=== PATIENT | female | born 1950 | race African-American/Black ===

== ENCOUNTER 2019-09-19 08:47 | Day surgery (SDC) | payer MEDICARE ==
[2019-09-17 16:55] LABS: Absolute Lymphocytes (CBC) 1.7 K/uL (0.7-4.9); Basophils % 0.8 % (0-1.3); Hematocrit 41.7 % (36.0-45.0); Lymphocytes % 29.6 % (15.3-44.8); RBC Red Blood Cell Count 4.88 M/uL (3.86-4.86)
[2019-09-17 16:56] LABS: Protein, Total 7.3 g/dL (6.4-8.2)
--- NOTE | 2019-09-18 06:47 | EKG ---
Test Date: 2019-09-17 Test Time: 15:11:32 Combat Systems Operator: HALLIE MEASUREMENT RESULTS: Intervals: Rate: 64 NJ: 172 QRSD: 106 QT: 424 QTc: 437 Thornton: P: 60 NJ: 172 QRS: 24 T: 5 INTERPRETIVE STATEMENTS: Normal sinus rhythm Nonspecific T wave abnormality Abnormal ECG No previous ECG available for comparison Electronically Signed On 09-18-19 06:45:09 SITE FOREMAN by Nicholas Cannon
--- OUTSIDE RECORDS SUMMARY | 2019-09-19 08:50 | XMS REPORT | Summary of Care ---
:1950 Author Organization [facility] Address [address] [place] [address] Care Team Providers Name Role Phone Barrera Brito MD Primary Care Provider Reason for Visit Reason Comments Notification Encounter Details Date Type Department Care Team Description 04/29/2019 Telephone [facility] Family Medicine Barrera Brito MD Notification - [place] [address] [place] [address] [place] [phone] Allergies Active Allergy Reactions Severity Noted Date Comments Sulfa (Sulfonamide Antibiotics) Hives, Itching, Rash 04/02/2017 documented as of this encounter (statuses as of 05/02/2019) Medications Medication Sig Dispensed Refills Start Date End Date Status aspirin (ANEESH Take 81 mg by 0 Active CHEWABLE ASPIRIN) 81 mouth daily. mg chewable tablet fluticasone 50 Use 2 Sprays in 16 g 1 02/13/2018 Active mcg/actuation nasal each nostril sprayIndications: daily. Acute non-seasonal allergic rhinitis, unspecified trigger furosemide 20 mg Take 1 tablet by 0 06/03/2018 Active tablet mouth daily. TIMOLOL 0.5 % INSTILL ONE DROP 20 mL 3 08/26/2018 Active ophthalmic solution IN BOTH EYES TWO TIMES DAILY allopurinol 300 mg Take 1 tablet by 90 tablet 3 09/06/2018 Active tablet mouth daily. atorvastatin 40 mg Take 1 tablet by 90 tablet 3 09/06/2018 Active tablet mouth at bedtime. bisoprolol 10 mg Take 1 tablet by 90 tablet 2 11/26/2018 Active tabletIndications: mouth every Medication refill morning. amLODIPine 10 mg Take 1 tablet by 90 tablet 2 11/26/2018 Active tabletIndications: mouth every Medication refill morning. metformin ER 500 mg Take 1 tablet by 180 tablet 2 01/20/2019 Active 24 hr mouth 2 (two) tabletIndications: times daily. Diabetes mellitus type 2 in obese GABAPENTIN 600 mg TAKE 1 TABLET BY 180 tablet 1 02/28/2019 Active tabletIndications: MOUTH TWO TIMES Medication refill DAILY LATANOPROST 0.005 % INSTILL ONE DROP 2.5 mL 6 03/07/2019 Active ophthalmic drops IN BOTH EYES AT BEDTIME cinacalcet 60 mg Take 1 tablet by 30 tablet 3 03/26/2019 Active tablet mouth daily. telmisartan 80 mg Take 1 tablet by 90 tablet 3 03/28/2019 06/26/2019 Active tabletIndications: mouth daily for Essential 90 days. hypertension REPLACES LOSARTAN. documented as of this encounter (statuses as of 05/02/2019) Active Problems Problem Noted Date CKD (chronic kidney disease), stage III 01/13/2019 Renal cyst, left 09/30/2018 Osteoarthritis of right hip 09/09/2018 Screening for colorectal cancer 04/12/2017 Overview: Added automatically from request for surgery [id number] Elevated total protein 04/09/2017 Hypercalcemia 04/09/2017 Abnormal LFTs 04/09/2017 Osteopenia 04/09/2017 Fatty liver 04/02/2017 Diabetes mellitus type 2 in obese 04/02/2017 Morbid obesity 04/02/2017 Vitamin D deficiency Sickle cell trait Right sided sciatica Peripheral edema Hypertension Hyperlipidemia Gout Chronic lower back pain documented as of this encounter (statuses as of 05/02/2019) Social History Tobacco Use Types Packs/Day Years Used Date Never Smoker Smokeless Tobacco: Never Used Alcohol Use Drinks/Week oz/Week Comments No Sex Assigned at Date Recorded Not on file Job Start Date Occupation Industry Not on file Not on file Not on file Travel History Travel Start Travel End No recent travel history available. documented as of this encounter Last Filed Vital Signs Not on filedocumented in this encounter Plan of Treatment Date Type Specialty Care Team Description 05/07/2019 Office Visit Urology Aye Orozco, SUPERVISOR ELECTRONIC TESTING [address] [facility] [address] [place] [address] [phone] 07/21/2019 Warp Changer Visit Phlebotomy Vtc-Lab 07/23/2019 Office Visit Ophthalmology Moon Duncan MD [address] [place] [address]. [place] [address] 07/28/2019 Office Visit Nephrology Shankar Varela [place], [place] [phone] 09/26/2019 Office Visit Endocrinology Diabetes & Juan Antonio Morris Metabolism [address] [place] [address] 03/15/2020 Laboratory Only Life Trainer, Adc Cardio Fac 1, Adc Cardio Fac Room 04/01/2020 Office Visit Cardiology Vanessa Moon MD [address] [place] [address] Health Maintenance Due Date Last Done Comments DTaP,Tdap,and Td Vaccines (1 - 1971 Tdap) Zoster Recombinant Vaccine 2002 (SHINGRIX) (1 of 2) Medicare Wellness Visit 2017 PNEUMOCOCCAL VACCINES 65+ (1 of 2 2017 - PCV13) HgA1C 03/09/2019 09/09/2018, 03/15/2018, 09/14/2017, Additional history exists MAMMOGRAM 04/03/2019 04/03/2018 INFLUENZA VACCINE (#1) 2019 LDL-C 09/09/2019 09/09/2018, 04/02/2017 URINE MICROALBUMIN 09/09/2019 09/09/2018 FOOT EXAM 09/20/2019 09/20/2018, 09/20/2018, 04/02/2017, Additional history exists CREATININE (SERUM) 01/17/2020 01/16/2019, 09/09/2018, 05/30/2018, Additional history exists EYE EXAM 03/20/2020 03/20/2019, 06/03/2018, 10/24/2017 COLONOSCOPY 09/10/2021 09/10/2011 HEPATITIS C (HCV) SCREEN Completed 04/02/2017 Osteoporosis Screening Completed 04/05/2017 documented as of this encounter Results Not on filedocumented in this encounter Insurance Payer Benefit Plan / Subscriber ID Effective Phone Address Type Group Dates [place] AARP MEDICARE [id number] 2017-Prese Medicare Adv HEALTHCARE - COMPLETE nt HMO MANAGED MEDICARE documented as of this encounter
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
--- OUTSIDE RECORDS SUMMARY | 2019-09-19 08:50 | XMS REPORT ---
:1950 Author Organization [facility] Address [address] [place] [address] Care Team Providers Name Role Phone Unavailable Unavailable Unavailable Payers Payer Name Policy Type Policy Number Effective Date Expiration Date Problems This patient has no known problems. Allergies, Adverse Reactions, Alerts Allergy Name Allergy Status Severity Reaction(s) Onset Inactive Treating Comments Type Date Date Clinician Sulfonylureas DA Active U 03-03 00:00: 00 Carbonic DA Active U Anhydrase -24 Inhibitors 00:00: 00 Thiazides DA Active U 03-03 00:00: 00 Sulfa DA Active U (Sulfonamide - Antibiotics) 00:00: 00 propoxyphene DA Active U 03-03 00:00: 00 Medications This patient has no known medications.
--- OUTSIDE RECORDS SUMMARY | 2019-09-19 08:50 | XMS REPORT | Summary of Care ---
:1950 Author Organization [facility] Address [address] [place] [address] Care Team Providers Name Role Phone Barrera Brito MD Primary Care Provider Reason for Visit Reason Comments LAB WORK Encounter Details Date Type Department Care Team Description 05/07/2019 Critical Care Physician Assistant Visit [facility] Aye Orozco, GROUP INSURANCE SPECIAL AGENT [address] [facility] [address] [place] [address] [phone] Renal calculus, left PHLEBOTOMY/LAB Vls-Lab [address] [facility] [address] [place] [phone] Allergies Active Allergy Reactions Severity Noted Date [...] Overview: Added automatically from request for surgery [id number] Elevated total protein 04/09/2017 Hypercalcemia 04/09/2017 Abnormal [...] Specialty Care Team Description 06/18/2019 Office Visit UrologAye Borjas, GROUP INSURANCE SPECIAL AGENT [address] [facility] [address] [place] [address] [phone] 07/21/2019 Critical Care Physician Assistant Visit Phlebotomy Vtc-Lab 07/23/2019 Office Visit Ophthalmology Moon Duncan MD [address] [place] [address]. [place] [address] 07/28/2019 Office Visit Nephrology Shankar Varela [address] [place] [address] 09/26/2019 Office Visit Endocrinology Diabetes & Juan Antonio Morris [address] [place], [place] [address] 03/15/2020 Laboratory Only Air Traffic Control Specialist, Adc Cardio Fac 1, Adc Cardio Fac Room 04/01/2020 Office Visit Cardiology Vanessa Moon MD [address] [facility] [address] [place] [address] Health Maintenance Due Date Last [...] in this encounter Visit Diagnoses Diagnosis Renal calculus, left Calculus of kidney documented in this encounter Insurance Payer Benefit Plan / Subscriber ID Effective Phone Address Type Group Dates UNITED AARP MEDICARE [id number] 2017-Prese Medicare Adv HEALTHCARE - COMPLETE nt HMO MANAGED MEDICARE ([place]) [place] [address] documented as of this encounter
--- OUTSIDE RECORDS SUMMARY | 2019-09-19 08:50 | XMS REPORT | Summary of Care ---
:1950 Author Organization [facility] Address [address] [place] [address] Care Team Providers Name Role Phone Barrera Brito MD Primary Care Provider Reason for Referral (Routine) Status Reason Specialty Diagnoses / Referred By Referred To Procedures Contact Contact New Request Endocrinology Diagnoses Hyperparathyroidism Hypercalcemia Ernesto, Diabetes & Procedures CONSULT/REFERRAL ENDOCRINOLOGY Aye N, STEAM PLANT RECORDS CLERK Metabolism [address] [facility] [address] [place] [address] Reason for Visit Reason Comments Referral/consult One single kidney; Cyst on kidney (Routine) Status Reason Specialty Diagnoses / Referred By Referred To Procedures Contact Contact Authorized PREMIUM AUDITOR-FAMILY / Diagnoses Z90.5 (ICD-10-CM) - Solitary kidney, acquired Q61.02 (ICD-10-CM) - Multiple renal cysts/ aware pa &ml Urology Service Ernesto Urology Procedures OUTPATIENT NEW 45 MINUTES OUTPATIENT ESTB 25 MINUTES FOLLOW-UP VISIT [address] [place] [address] Aye N, STEAM PLANT RECORDS CLERK [place] [address] [facility] [address] [address] Phone: [place], [place] [phone] Encounter Details Date Type Department Care Team Description 05/07/2019 Office Visit [facility] Miriam Orozcoe Renal cyst, left (Primary Dx); Center-Urologic N, STEAM PLANT RECORDS CLERK Renal calculus, left; Oncology 2[address] [facility] Solitary left kidney; [address] [facility] Hyperparathyroidism; [address] Hypercalcemia [place], [place] [address] [phone] Allergies Active Allergy Reactions Severity Noted Date [...] Overview: Added automatically from request for surgery [id number] Elevated total protein 04/09/2017 Hypercalcemia 04/09/2017 Abnormal [...] in this encounter Progress Notes Aye Orozco, STEAM PLANT RECORDS CLERK - 05/07/2019 9:30 AM CDT Visit Type: [...] kidney" per patient. No cancer. Seen by Tube Pusher for endometrium thickening - monitoring. No vaginal [...] N/A 05/17/2017 Surgeon: Serena Chavez MD; Location: [facility] OR [facility] ESOPHAGOGASTRODUODENOSCOPY 2013 Dr. Vallecillo FOOT TENDON REPAIR [...] file Gets together: Not on file Attends pentecostal service: Not on file Active member of [...] Seen HPF Moderate (A) Results for KHRIS RFASER ( ) as of 05/07/2019 09:27 Ref. [...] severe narrowing of the disc space with [id number] contact between lower posterior edge of L5 [...] is unusual for the patient's age. Therefore, PLASTIC SHEETING CUTTER consultation along with transvaginal pelvic ultrasound study [...] Office Visit Urology Aye Orozco FNP [address] [facility] [address] [place], [place] [address] 07/21/2019 Lapping Machine Tender Visit Phlebotomy Vtc-Lab 07/23/2019 Office Visit Ophthalmology Moon Duncan MD [address] [place] [address]. [place] [address] 07/28/2019 Office Visit Nephrology Shankar V[address]la [address] [place] [address] [phone] 09/26/2019 Office Visit Endocrinology Diabetes & Juan Antonio Morris Metabolism [address] [place] [address] [phone] 03/15/2020 Laboratory Only Dial Mounter, Adc Cardio Fac 1, Adc Cardio Fac Room 04/01/2020 Office Visit Cardiology Vanessa Moon MD [address] [address] [place] [phone] Name Type Priority Associated Diagnoses Order Schedule [...] Address Type Group Dates [place] AARP MEDICARE [id number] 2017-Prese Medicare Adv HEALTHCARE - COMPLETE [facility] MEDICARE ([place]) [place] [address] documented as of this encounter
--- OUTSIDE RECORDS SUMMARY | 2019-09-19 08:51 | XMS REPORT | Summary of Care ---
:1950 Author Organization [facility] Address [address] [place] [address] Care Team Providers Name Role Phone Barrera Brito MD Primary Care Provider Reason for Visit Reason Comments Cough X 4 days HOARSENESS Encounter Details Date Type Department Care Team Description 05/21/2019 Office Visit [facility] Family TcAlexandria rojas, Acute non- recurrent maxillary sinusitis (Primary Dx); Medicine - [place] EXECUTIVE SEARCH CONSULTANT Cough [address] [place], [place] [address] [address] [address] [place], [place] [address] Allergies Active Allergy Reactions Severity Noted Date Comments Sulfa (Sulfonamide Antibiotics) Hives, Itching, Rash 04/02/2017 documented as of this encounter (statuses as of 05/21/2019) Medications Medication Sig Dispensed Refills Start Date End Date Status aspirin (ANEESH Take 81 mg by 0 Active CHEWABLE ASPIRIN) mouth daily. 81 mg chewable tablet furosemide 20 mg Take 1 tablet 0 06/03/2018 Active tablet by mouth daily. TIMOLOL 0.5 % INSTILL ONE 20 mL 3 08/26/2018 Active ophthalmic DROP IN BOTH solution EYES TWO TIMES DAILY allopurinol 300 mg Take 1 tablet 90 tablet 3 09/06/2018 Active tablet by mouth daily. atorvastatin 40 mg Take 1 tablet 90 tablet 3 09/06/2018 Active tablet by mouth at bedtime. bisoprolol 10 mg Take 1 tablet 90 tablet 2 11/26/2018 Active tabletIndications: by mouth every Medication refill morning. amLODIPine 10 mg Take 1 tablet 90 tablet 2 11/26/2018 Active tabletIndications: by mouth every Medication refill morning. metformin ER 500 Take 1 tablet 180 tablet 2 01/20/2019 Active mg 24 hr by mouth 2 tabletIndications: (two) times Diabetes mellitus daily. type 2 in obese GABAPENTIN 600 mg TAKE 1 TABLET 180 tablet 1 02/28/2019 Active tabletIndications: BY MOUTH TWO Medication refill TIMES DAILY LATANOPROST 0.005 INSTILL ONE 2.5 mL 6 03/07/2019 Active % ophthalmic drops DROP IN BOTH EYES AT BEDTIME cinacalcet 60 mg Take 1 tablet 30 tablet 3 03/26/2019 Active tablet by mouth daily. telmisartan 80 mg Take 1 tablet 90 tablet 3 03/28/2019 06/26/2019 Active tabletIndications: by mouth daily Essential for 90 days. hypertension REPLACES LOSARTAN. benzonatate 200 mg Take 1 capsule 30 capsule 0 05/21/2019 Active capsuleIndications by mouth 3 : Cough (three) times daily as needed for Cough. amoxicillin 875 mg Take 1 tablet 20 tablet 0 05/21/2019 05/31/2019 Active tabletIndications: by mouth 2 Acute (two) times non-recurrent daily for 10 maxillary days. sinusitis fluticasone Use 2 Sprays 16 g 1 05/21/2019 Active propionate 50 in each mcg/actuation nostril daily. nasal sprayIndications: Acute non-recurrent maxillary sinusitis fluticasone 50 Use 2 Sprays 16 g 1 02/13/2018 05/21/2019 Discontinued mcg/actuation in each nasal nostril daily. sprayIndications: Acute non-seasonal allergic rhinitis, unspecified trigger documented as of this encounter (statuses as of 05/21/2019) Active Problems Problem Noted Date CKD (chronic kidney disease), stage III 01/13/2019 Renal cyst, left 09/30/2018 Osteoarthritis of right hip 09/09/2018 Screening for colorectal cancer 04/12/2017 Overview: Added automatically from request for surgery [id number] Elevated total protein 04/09/2017 Hypercalcemia 04/09/2017 Abnormal LFTs 04/09/2017 Osteopenia 04/09/2017 Fatty liver 04/02/2017 Diabetes mellitus type 2 in obese 04/02/2017 Morbid obesity 04/02/2017 Vitamin D deficiency Sickle cell trait Right sided sciatica Peripheral edema Hypertension Hyperlipidemia Gout Chronic lower back pain documented as of this encounter (statuses as of 05/21/2019) Social History Tobacco Use Types Packs/Day Years [...] Sign Reading Time Taken Comments Blood Pressure 136/85 05/21/2019 3:47 PM CDT Pulse 91 05/21/2019 3:47 PM CDT Temperature 37.2 C (98.9 F) 05/21/2019 3:46 PM CDT Respiratory Rate - - Oxygen Saturation - - Inhaled Oxygen Concentration - - Weight 115.7 kg (255 lb) 05/21/2019 3:46 PM CDT Height 162.6 cm (5' 4") 05/21/2019 3:46 PM CDT Body Mass Index 43.77 05/21/2019 3:46 PM CDT documented in this encounter Patient Instructions Patient InstructionsAlexandria Montez FNP - 05/21/2019 3:40 PM CDTGeneral home recommendations include: Start taking plain antihistamine such as Claritin or Zyrtec or Smitha daily. Rest Increase fluids -Hydration with clear liquids. Vitamin C Warm salt water gargles for sore throat. Breath humidified air (steam) Sipping warm drinks may help. Warm Compresses (if sinus pressure or pain). Hand Hygiene (with alcohol gels or hand washing) Advised to take Tylenol or Ibuprofen as per label recommendation as needed for pain or fever Honey 10mL (2 teaspoons) has been shown to relieve cough at bedtime. Dark Chocolate helps with cough (xanthenes) Avoidance of cigarette smoke, alcoholic drinks, diving into deep water and air travel is useful. Irrigate your nose with normal saline moisture spray 2 or 3 times a day. You may use a spray, squeeze bottle, or nasal pot. - Advised to follow up with PCP, Urgent Care, or go to the nearest Emergency Department sooner for any new, worsening, persistent, or concerning symptoms. documented in this encounter Progress Notes Alexandria Montez, EXECUTIVE SEARCH CONSULTANT - 05/21/2019 3:40 PM CDT Cc: Chief Complaint Patient presents with Cough X 4 days HOARSENESS Nils Abbasi is a 69 year old female that presents to the clinic for sinus drainage, cough, and hoarseness for the past 4 days. She has tried taking Benadryl without relief. Her daughter and granddaughter have been sick with similar symptoms. Cough Cough characteristics: Hacking and dry Severity: Moderate Duration: 4 days Timing: Constant Progression: Unchanged Chronicity: New Context: sick contacts (daughter and grandchild) Worsened by: Nothing Ineffective treatments: Benadryl. Associated symptoms: headaches Associated symptoms: no chills, no ear pain, no fever, no rash, no shortness of breath and no sore throat Allergies Nils is allergic to sulfa (sulfonamide antibiotics). Medications Outpatient Medications Prior to Visit Medication Sig Dispense Refill telmisartan 80 mg tablet Take 1 tablet by mouth daily for 90 days. REPLACES LOSARTAN. 90 tablet 3 cinacalcet 60 mg tablet Take 1 tablet by mouth daily. 30 tablet 3 LATANOPROST 0.005 % ophthalmic drops INSTILL ONE DROP IN BOTH EYES AT BEDTIME 2.5 mL 6 GABAPENTIN 600 mg tablet TAKE 1 TABLET BY MOUTH TWO TIMES DAILY 180 tablet 1 metformin ER 500 mg 24 hr tablet Take 1 tablet by mouth 2 (two) times daily. 180 tablet 2 amLODIPine 10 mg tablet Take 1 tablet by mouth every morning. 90 tablet 2 bisoprolol 10 mg tablet Take 1 tablet by mouth every morning. 90 tablet 2 allopurinol 300 mg tablet Take 1 tablet by mouth daily. 90 tablet 3 atorvastatin 40 mg tablet Take 1 tablet by mouth at bedtime. 90 tablet 3 TIMOLOL 0.5 % ophthalmic solution INSTILL ONE DROP IN BOTH EYES TWO TIMES DAILY 20 mL 3 furosemide 20 mg tablet Take 1 tablet by mouth daily. fluticasone 50 mcg/actuation nasal spray Use 2 Sprays in each nostril daily. 16 g 1 aspirin (ANEESH CHEWABLE ASPIRIN) 81 mg chewable tablet Take 81 mg by mouth daily. No facility-administered medications prior to visit. Histories Past Medical History: Diagnosis Date Abnormal LFTs [...] N/A 05/17/2017 Surgeon: Serena Chavez MD; Location: [facility] ESOPHAGOGASTRODUODENOSCOPY 2013 Dr. Vallecillo FOOT TENDON REPAIR Right 1999 associated with fracture LASIK (LASER IN SITU KERATOMILEUSIS) RK LIPOMA EXCISION 1992 back NEPHRECTOMY Right 1987 benign RADIAL KERATOTOMY TUBAL LIGATION 1979 Social History Socioeconomic History Marital status: Spouse [...] file Gets together: Not on file Attends druze service: Not on file Active member of [...] file Social History Narrative Not on file Family History Problem Relation Age of Onset Heart Mother Heart Father No Significant Medical Problems Sister Kidney disease Brother ESRD Diabetes Maternal Grandmother Parkinsons disease Brother Review of Systems Constitutional: Negative for chills, fatigue and fever. HENT: Positive for postnasal drip, sinus pressure and voice change (hoarseness) . Negative for ear discharge, ear pain and sore throat. Respiratory: Positive for cough. Negative for shortness of breath. Gastrointestinal: Negative for diarrhea and vomiting. Musculoskeletal: Negative for arthralgias. Skin: Negative for rash. Neurological: Positive for headaches. Psychiatric/Behavioral: Negative for agitation and confusion. Vital Signs BP 136/85 | Pulse 91 | Temp 37.2 C (98.9 F) (Oral) | Ht 5' 4" (1.626 m) | Wt 255 lb (115.7 kg) | BMI 43.77 kg/m Physical Exam Constitutional: She is oriented to person, place, and time. She appears well- developed and well-nourished. No distress. HENT: Head: Normocephalic and atraumatic. Right Ear: Tympanic membrane and ear canal normal. Left Ear: Tympanic membrane and ear canal normal. Nose: Mucosal edema present. Right sinus exhibits maxillary sinus tenderness. Right sinus exhibits no frontal sinus tenderness. Left sinus exhibits maxillary sinus tenderness. Left sinus exhibits no frontal sinus tenderness. Mouth/Throat: Uvula is midline, oropharynx is clear and moist and mucous membranes are normal. Eyes: Conjunctivae are normal. Cardiovascular: Normal rate, regular rhythm, normal heart sounds and intact distal pulses. Pulmonary/Chest: Effort normal and breath sounds normal. Lymphadenopathy: Head (right side): No tonsillar adenopathy present. Head (left side): No tonsillar adenopathy present. She has no cervical adenopathy. Neurological: She is alert and oriented to person, place, and time. Gait normal. Skin: Skin is warm and dry. No rash noted. Psychiatric: She has a normal mood and affect. Her behavior is normal. Thought content normal. Nursing note and vitals reviewed. Assessment/Plan 1. Acute non-recurrent maxillary sinusitis - amoxicillin 875 mg tablet; Take 1 tablet by mouth 2 (two) times daily for 10 days. Dispense: 20 tablet; Refill: 0 - fluticasone propionate 50 mcg/actuation nasal spray; Use 2 Sprays in each nostril daily. Dispense: 16 g; Refill: 1 - educated patient about at home care: Start taking plain antihistamine such as Claritin or Zyrtec or Smitha daily. Rest Increase fluids -Hydration with clear liquids. Vitamin C Warm salt water gargles for sore throat. Breath humidified air (steam) Sipping warm drinks may help. Warm Compresses (if sinus pressure or pain). Hand Hygiene (with alcohol gels or hand washing) Advised to take Tylenol or Ibuprofen as per label recommendation as needed for pain or fever Honey 10mL (2 teaspoons) has been shown to relieve cough at bedtime. Dark Chocolate helps with cough (xanthenes) Avoidance of cigarette smoke, alcoholic drinks, diving into deep water and air travel is useful. Irrigate your nose with normal saline moisture spray 2 or 3 times a day. You may use a spray, squeeze bottle, or nasal pot. - Advised to follow up with PCP, Urgent Care, or go to the nearest Emergency Department sooner for any new, worsening, persistent, or concerning symptoms. 2. Cough - benzonatate 200 mg capsule; Take 1 capsule by mouth 3 (three) times daily as needed for Cough. Dispense: 30 capsule; Refill: 0 Plan of care, desired health behaviors, goals, and medication discussed with patient. Education resources provided and reviewed with AVS. Patient/guardian/family verbalized understanding & agrees to plan of care. This visit did not involve counseling and coordination that comprised more than 50% of the visit time. If applicable, the [place] VISCOSITY INSPECTOR database was accessed to review any controlled substance prescription claims data. The [place] prescription claims data in One[employer]See was reviewed to assess patient compliance with the medication treatment plan. Alexandria Montez APRN, ALONDRA-C 05/21/2019 4:05 PM documented in this encounter Plan of Treatment Date Type Specialty Care Team Description 06/18/2019 Office Visit Urology Aye Orozco FNP [address] [facility] [address] [place], [place] [address] 07/21/2019 Turntable Engineer Visit Phlebotomy V[facility]-Lab 07/23/2019 Office Visit Ophthalmology Moon Duncan MD [address] [place] [address]. [place] [address] 07/28/2019 Office Visit Nephrology [place] [address] 09/26/2019 Office Visit Endocrinology Diabetes & Juan Antonio Morris Metabolism [address] [place] [address] [phone] 03/15/2020 Laboratory Only Issue Clerk, Nelda Cardio Fac 1, Adc Cardio Fac Room 04/01/2020 Office Visit Cardiology Vanessa Moon MD [address] [place] [address] Health Maintenance Due Date Last [...] filedocumented in this encounter Visit Diagnoses Diagnosis Acute non-recurrent maxillary sinusitis - Primary Cough documented in this encounter Insurance Payer Benefit Plan / Subscriber ID Effective Phone Address Type Group Dates [facility] MEDIC[facility] [id number] 2017-Prese Medicare Adv HEALTHCARE - COMPLETE nt O MANAGED MEDICARE documented as of this encounter
--- OUTSIDE RECORDS SUMMARY | 2019-09-19 08:51 | XMS REPORT | Summary of Care ---
:1950 Author Organization [facility] Address [address] [place] [address] Care Team Providers Name Role Phone Barrera Brito MD Primary Care Provider Reason for Visit Reason Comments Cough X 4 days HOARSENESS Encounter Details Date Type Department Care Team Description 05/21/[address] [facility] Family TcAlexandria rojas, Acute non- recurrent maxillary sinusitis (Primary Dx); Medicine - [place] CHIEF UNDERWRITER Cough [address] [place], [place] [address] [address] [address] [place], [place] [address] Allergies Active Allergy Reactions Severity Noted Date [...] Overview: Added automatically from request for surgery [id number] Elevated total protein 04/09/2017 Hypercalcemia 04/09/2017 Abnormal [...] in this encounter Progress Notes Alexandria Montez, CHIEF UNDERWRITER - 05/21/2019 3:40 PM CDT Cc: Chief [...] N/A 05/17/2017 Surgeon: Serena Chavez MD; Location: [facility] [place] ESOPHAGOGASTRODUODENOSCOPY [address] Dr[address] Vallecillo FOOT TENDON REPAIR [...] file Gets together: Not on file Attends rastafari service: Not on file Active member of [...] of the visit time. If applicable, the [place] FARM TECHNICIAN database was accessed to review any controlled substance prescription claims data. The [employer] prescription claims data in [employer] was reviewed to assess patient compliance with the medication treatment plan. Alexandria Montez APRN, ALONDRA-C 05/21/2019 4:05 PM documented in this encounter Plan of Treatment Date Type Specialty Care Team Description 06/18/2019 Office Visit Urology Aye Orozco FNP [address] [facility] [address] [place], [place] [address] 07/21/2019 Salad Bar Clerk Visit Phlebotomy Vtc-Lab 07/23/2019 Office Visit Ophthalmology Moon Duncan MD [address] [place] [address]. [place] [address] 07/28/2019 Office Visit [place]ph[place] [address] 09/26/2019 Office Visit Endocrinology Diabetes & Juan Antonio Morris Metabolism [address] [place] [address] [phone] 03/15/2020 Laboratory Only Sheet Rock Taper, Nelda Cardio Fac 1, Adc Cardio Fac Room 04/01/2020 Office Visit Cardiology Vanessa Moon MD [address] [facility] [address] [place] [address] Health Maintenance Due Date Last [...] ID Effective Phone Address Type Group Dates [facility] MEDICARE [id number] 2017-Prese Medicare Adv HEALTHCARE - COMPLETE nt O MANAGED MEDICARE documented as of this encounter
--- OUTSIDE RECORDS SUMMARY | 2019-09-19 08:51 | XMS REPORT | Summary of Care ---
:1950 Author Organization [facility] - Health Address [address] [place] [address] Care Team Providers Name Role Phone Barrera Brito MD Primary Care Provider Encounter Details Date Type Department Care Team Description 05/15/2019 Orders Only [facility] Doctor Unassigned, No [address] [facility] Name [place] [phone] [place] [address] Allergies Active Allergy Reactions Severity Noted Date Comments Sulfa (Sulfonamide Antibiotics) Hives, Itching, Rash 04/02/2017 documented as of this encounter (statuses as of 05/15/2019) Medications Medication Sig Dispensed Refills Start Date [...] as of this encounter (statuses as of 05/15/2019) Active Problems Problem Noted Date CKD (chronic kidney disease), stage III 01/13/2019 Renal cyst, left 09/30/2018 Osteoarthritis of right hip 09/09/2018 Screening for colorectal cancer 04/12/2017 Overview: Added automatically from request for surgery [id number] Elevated total protein 04/09/2017 Hypercalcemia 04/09/2017 Abnormal LFTs 04/09/2017 Osteopenia 04/09/2017 Fatty liver 04/02/2017 Diabetes mellitus type 2 in obese 04/02/2017 Morbid obesity 04/02/2017 Vitamin D deficiency Sickle cell trait Right sided sciatica Peripheral edema Hypertension Hyperlipidemia Gout Chronic lower back pain documented as of this encounter (statuses as of 05/15/2019) Social History Tobacco Use Types Packs/Day Years [...] Treatment Date Type Specialty Care Team Description 05/15/2019 Gliding Pilot Instructor Visit Clinical Medical Aye Orozco, ALONDRA [address] [facility] [address] [place] [address] [phone] Laboratory 1, Adc Lab 06/18/2019 Office Visit Urology Aye Orozco, MANAGER NIGHT [address] [facility] [address] [place] [address] [phone] 07/21/2019 Gliding Pilot Instructor Visit Phlebotomy [facility]-Lab 07/23/2019 Office Visit Ophthalmology Moon Duncan MD [address] [place] [address]. [place] [address] 07/28/2019 Office Visit Nephrology Shankar Varela [address] [place], [place] [phone] 09/26/2019 Office Visit Endocrinology Diabetes & Juan Antonio [facility] [address] [place], [place] [address] 03/15/2020 Laboratory Only Ultrasound Tester, Adc Cardio Fac 1, Adc Cardio Fac Room 04/01/2020 Office Visit Cardiology Vanessa Moon MD [address] [place] [address] Health Maintenance Due Date Last [...] Completed 04/05/2017 documented as of this encounter Procedures Procedure Name Priority Date/Time Associated Diagnosis Comments NOTICE OF BILLING Routine 05/15/2019 10:39 AM CDT PRACTICES FOR MEDICARE PATIENTS documented in this encounter Results Not on filedocumented in this encounter Insurance Payer Benefit Plan / Subscriber ID Effective Phone Address Type Group Dates [place] AARP MEDICARE [id number] 2017-Prese Medicare Adv HEALTHCARE - COMPLETE nt [facility] MANAGED MEDICARE documented as of this encounter
--- OUTSIDE RECORDS SUMMARY | 2019-09-19 08:51 | XMS REPORT | Summary of Care ---
:1950 Author Organization [facility] Address [address] [place] [address] Care Team Providers Name Role Phone Barrera Brito MD Primary Care Provider Reason for Visit Reason Comments HEALTH MAINTENANCE Medication Refills Encounter Details Date Type Department Care Team Description 05/08/2019 Telephone [facility] Augusto Ruano RN HEALTH MAINTENANCE Accountable [address] (Medication Refills) [address] [place] [address] [place] [phone] Allergies Active Allergy Reactions Severity Noted Date Comments Sulfa (Sulfonamide Antibiotics) Hives, Itching, Rash 04/02/2017 documented as of this encounter (statuses as of 05/08/2019) Medications Medication Sig Dispensed Refills Start Date [...] as of this encounter (statuses as of 05/08/2019) Active Problems Problem Noted Date CKD (chronic kidney disease), stage III 01/13/2019 Renal cyst, left 09/30/2018 Osteoarthritis of right hip 09/09/2018 Screening for colorectal cancer 04/12/2017 Overview: Added automatically from request for surgery [id number] Elevated total protein 04/09/2017 Hypercalcemia 04/09/2017 Abnormal LFTs 04/09/2017 Osteopenia 04/09/2017 Fatty liver 04/02/2017 Diabetes mellitus type 2 in obese 04/02/2017 Morbid obesity 04/02/2017 Vitamin D deficiency Sickle cell trait Right sided sciatica Peripheral edema Hypertension Hyperlipidemia Gout Chronic lower back pain documented as of this encounter (statuses as of 05/08/2019) Social History Tobacco Use Types Packs/Day Years [...] Team Description 06/18/2019 Office Visit Urology Aye Orozco, DIRECTOR [employer] [address] [facility] [address] [place] [address] [phone] 07/21/2019 Emergency Specialist Visit Phlebotomy [facility]-Lab 07/23/2019 Office Visit Ophthalmology Moon Duncan MD [address] [place] [address]. [place] [address] 07/28/2019 Office Visit Nephrology Shankar [place] [address] 09/26/2019 Office Visit Endocrinology Diabetes & Juan Antonio [facility] [address] [place] [address] 03/15/2020 Laboratory Only Report Developer, Adc Cardio Fac 1, Adc Cardio Fac Room 04/01/2020 Office Visit Cardiology Vanessa Moon MD [address] [place] [address] Health Maintenance Due Date Last [...] Address Type Group Dates [place] [employer]ARP MEDICARE [id number] 2017-Prese Medicare Adv HEALTHCARE - COMPLETE nt [employer] MANAGED MEDICARE documented as of this encounter
[2019-09-19] MEDS ORDERED: NA CHLORIDE 0.9% 1,000 ML ONE (09:15)
[2019-09-19] MEDS ORDERED: DEXTROSE 5% IV ONE (09:30)
[2019-09-19] MEDS ORDERED: METHYLENE BLUE 0.5% IV ONE (09:30)
[2019-09-19] MEDS ORDERED: WATER IV ONE (09:30)
[2019-09-19] MEDS ORDERED: propofoL 200 MG/20 ML VIAL IV ONE (10:36)
[2019-09-19] MEDS ORDERED: ROCURONIUM 50 MG/5 ML VIAL IV ONE (10:37)
[2019-09-19] MEDS ORDERED: MIDAZOLAM HCL 2 MG/2 ML INJ ONE (10:37)
[2019-09-19] MEDS ORDERED: LIDOCAINE 2% MPF 5 ML VIAL ONE (10:37)
[2019-09-19] MEDS ORDERED: dexAMETHasone 10 MG/ML VIAL ONE (10:37)
[2019-09-19] MEDS ORDERED: FENTANYL CITR 250 MCG/5 ML ONE (10:37)
[2019-09-19] MEDS ORDERED: LIDOCAINE 1% W/EPI 1:100,000 MDV 20 ML VIAL ONE (10:52)
[2019-09-19] MEDS ORDERED: Mastisol Adhesive Liq ONE (10:52)
[2019-09-19] MEDS ORDERED: Phenylephrine HCl 10 MG/ML 1 ML VIAL ONE (13:05)
[2019-09-19] MEDS ORDERED: NS 0.9% VIAL 10 ML ONE (13:05)
[2019-09-19] MEDS: NA CHLORIDE 0.9% 1,000 ML ONE ×2 (13:33→13:45)
[2019-09-19] MEDS ORDERED: NA CHLORIDE 0.9% 500 ML ONE (16:16)
[2019-09-19] MEDS ORDERED: ONDANSETRON 4 MG/2 ML VIAL ONE (16:27)
[2019-09-19] MEDS: MEPERIDINE HCL 25 MG/0.5 ML ONE ×2 (16:31→16:34)
[2019-09-19] MEDS ORDERED: MEPERIDINE HCL 25 MG/0.5 ML ONE (16:40)
[2019-09-19 16:57] VITALS: BP 137/85; TEMP 96.9; O2SAT 99
--- NOTE | 2019-09-20 16:38 | P.BOP ---
Preoperative diagnosis: primary hyperPTH, hyperCa Postoperative diagnosis: same, parathyroid adenoma, thyroid nodule uncertain behavior Primary procedure: parathyroidectomy Secondary procedure: thyroid lobectomy Slot Machine Floor Person: AYO LEPE Estimated blood loss: 20ml Specimen: 1. R inf parathyroid, 2. R sup parathyroid, 3. R thyroid lobe Findings: PTH persistantly elevated. R inferior hypoechoic thyroid nodule about 1.5c Anesthesia: General Complications: None Drain(s): MULU drain Fluids & blood products: see jd. record Transferred to: Recovery Room Condition: Good
--- NOTE | 2019-09-21 00:20 | OP ---
Date of Procedure: 09/19/2019 Surgeon: Lupe Castelan MD Business Information Manager: Gabrielle Murphy, certified assistant softball coach. Preoperative Diagnoses: Primary hyperparathyroidism, hypercalcemia. Postoperative Diagnoses: Primary hyperparathyroidism, hypercalcemia with parathyroid adenoma and thyroid neoplasm of uncertain behavior. Indication For Procedure: Nils Abbasi is a 69-year-old female with a long-standing history of hypercalcemia. She initially presented in 2013 with hypercalcemia with a history of nephrectomy and single kidney for reasons which were not clear. At that time, she was relatively asymptomatic and never had kidney stones that she was aware of and was noted to have a mildly elevated calcium of 10.3 and intact PTH of 111 and a normal creatinine function. The patient deferred extensive workup at that time, but did consent to blood work, including evaluation of vitamin D, which was noted to be very low and vitamin D replacement was recommended. The patient subsequently approximately 5 years later developed a kidney stone and her negative checker ordered a CT of the neck with a sestamibi. The sestamibi, performed at [facility], localized with increased activity in the right lower neck near the posterior inferior aspect of the thyroid. Due to the overall picture, a recommendation was made for surgery. Evaluation with laboratory studies in July 2019 showed a calcium of 11.6, a PTH of 113, and a creatinine of 0.86. The CT with sestamibi from March of 2019 was reviewed including the images and the report and a strong suspicion for a right inferior parathyroid adenoma was suspected. Given the new symptoms of kidney stones with a long-standing diagnosis of osteoporosis, increase or worsening in her hypercalcemia, she clearly met surgical guidelines for parathyroidectomy. The risks, benefits of the procedure were discussed with the patient who agreed to proceed. Intraoperative Findings: I was able to identify and remove a right parathyroid adenoma, but the patient had a persistently elevated parathyroid hormone level. Decision was made to remove the right superior parathyroid, though its overall appearance was not highly suspicious. In addition, there was an approximately 1.5 cm firm nodule in the inferior aspect of the right thyroid and after intraoperative discussion with the patient's daughter in consideration of the overall management of thyroid nodules and risk of requiring reoperation for the thyroid nodule and a scarred and previously operated field, decision was made to remove the left thyroid lobe during this operative session. After removal of the superior and inferior parathyroid as well as the right thyroid lobe, the patient had persistently elevated parathyroid hormone. Frozen section confirmed the 2 small lesions contained parathyroid tissue. The first specimen which was removed was significantly hypercellular and consistent with a parathyroid adenoma. Medical decision making intraoperatively was significant in regard to whether to proceed with 4- gland exploration. In this medical decision making, I considered the overall duration of the surgery, which was approximately 3 hours at that time. In addition, due to the time of day and decrease available staffing, a surgical supply assistant was not available to continue this case. Other factors including surgeon fatigue were considered overall given the confirmatory findings on the pathology, which were coincident with the preoperative assessment and sestamibi localization, I decided to not explore the left neck and to follow the patient clinically so that I could engage the patient in further decision-making regarding operation of the left and consider additional localization study to aid in further surgical planning. Description Of Procedure: The patient was brought to the operating room. She was placed under general anesthesia via oral endotracheal tube. A shoulder roll was placed. The head was extended for best exposure of the neck. Surgeon- performed ultrasound was performed to aid in incision planning. During ultrasound of the neck, the attention was focused on the right neck due to the preoperative sestamibi scan. The isthmus and trachea were noted and the right thyroid bed was carefully examined. There were several small cystic appearing nodules of the superior portion of the thyroid. There was a medium-sized approximately 1.5, hypoechoic nodule of the inferior pole and the great vessels were easily visualized in their typical anatomic compartments. The neck was prepped and draped in a standard fashion using Betadine. A 2-1/2 to 3 cm incision was made through the skin and subcutaneous tissues. The Bovie electrocautery was used to control bleeding from the skin edges and to divide the subcutaneous tissues down to the level of the platysma. The platysma was divided and the strap muscles were identified in the midline. The strap muscles were elevated off the anterior surface of the thyroid and the lateral aspect of the thyroid as well as the inferior pole were mobilized in order to identify the right inferior parathyroid gland. Once the inferior pole was mobilized and elevated, the inferior parathyroid gland was noted. It was a deep purple color due to the preoperative administration of dilute intravenous methylene blue. The parathyroid was carefully dissected from the surrounding tissues and removed and placed on the back table. Timer was set for 15 minutes in order to allow for an intraoperative PTH to confirm biochemical response to the parathyroidectomy. While waiting, the right thyroid was carefully examined and evaluated. There were several small soft palpable nodules in the superior portion, but the inferior pole was occupied by approximately 1.5-2 cm firm nodule. There was no obvious extension into the capsule grossly or into extrathyroidal tissues grossly. Careful consideration was made regarding the typical management of thyroid nodules. Given the hypoechoic appearance and size normal management for such a nodule would include a fine-needle aspiration cytology with a recommendation for a thyroid lobectomy versus total thyroidectomy based on the cytology. If the nodules were malignant, surgery would be recommended. Consideration was also made with regard to the fact that if surgery were required, the thyroid surgical bed would be significantly scarred due to this present surgery. The overall risk of removal of the thyroid (right lobe) was not felt to be greater than the risk all ready accepted in undertaking the parathyroid surgery. Brief intraoperative consultation was made [id number] with the patient's daughter in regard to this and the patient's daughter agreed that right thyroid lobectomy was reasonable with the goal of treating the thyroid nodule and avoiding a secondary operation if feasible. The right thyroid was removed by mobilizing the superior pole, releasing the vascular attachments using the LigaSure, dividing the isthmus and elevating the medial aspect off the trachea. The right recurrent laryngeal nerve was identified in its superior portion near the insertion area and was carefully protected during final dissection and division of the soft tissue attachments. During dissection and removal of the right thyroid lobe, the superior parathyroid was identified and left within the surgical bed. After removal of the thyroid, the surgical bed was carefully irrigated. There was no significant bleeding and the superior thyroid appeared to be viable at that time. The intraoperative PTH then returned but remained elevated at 112. Consideration was made as to whether this superior thyroid, although not visibly enlarged, could be a source for overactivity in light of the localizing study confirming a right-sided lesion, decision was made to remove this parathyroid and all 3 specimens were brought to the pathologist for discussion and evaluation. The decision was made to freeze the 2 parathyroid specimens and defer evaluation of the thyroid to permanent section. The pathologist then confirmed the first specimen removed was consistent with parathyroid which was notably hypercellular. The second specimen was confirmed to be parathyroid tissue and definitively not thyroid or lymph node tissue. With pathologic confirmation of removal of both right superior and inferior parathyroid glands, I considered the options of additional exploration within the right side for a supernumerary parathyroid gland. Consideration was also made for exploration of the left neck including the left parathyroid glands in case of secondary adenoma which may not have been noted on the sestamibi scan. Other considerations were made for this patient that in light of a single kidney, her metabolism of parathyroid hormone may be much slower than typical or that she could have some underlying secondary hyperparathyroidism contributing to the elevated level. The patient's full medical record including prior labs at [facility] were not available to me intraoperatively as I was operating at [facility]. Therefore, these specific data and numbers could not be used during the intraoperative assessment. In considering the time of day, the overall length of procedure, and the a change of staffing due to the time of day, I was left without a surgical supply assistant. I also considered degree of surgeon fatigue and due to all of these factors, I made the decision not to explore the left side of the neck and to follow the patient medically and biochemically going forward and consider reoperation of the left neck if medically indicated in the future. Therefore, a 10-Slovak round MULU drain was placed through this skin and tucked into the right thyroid bed. A single 4-0 Vicryl suture was used to close the strap muscles in the midline and the incision were closed in a layered fashion using 4-0 Vicryl sutures for the platysmal and subcutaneous layers. The skin was closed using a 5-0 Monocryl in a subcuticular fashion. The skin was cleaned and dried and Mastisol and Steri-Strips were applied to the incision. The patient was then returned to care of anesthesia for awakening and extubation in the operating room, which proceeded without complication. Disposition: The patient will be discharged home later today in the care of her family and follow up with Dr. Castelan in 10 days for re-evaluation and removal of the MULU drain. NASH/RADHA Voice ID: [id number] Report ID: [id number]
== END 2019-09-19 18:09 | disposition home or self-care (01) ==
LOC: OR 08:47
PROVIDERS: ATTEND Otolaryngology
PROC: 0GTG0ZZ Resection of Left Thyroid Gland Lobe, Open Approach (ICD-10-PCS; 2019-09-19)
PROC: 0GBH0ZZ Excision of Right Thyroid Gland Lobe, Open Approach (ICD-10-PCS; 2019-09-19)
PROC: 0GBJ0ZZ Excision of Thyroid Gland Isthmus, Open Approach (ICD-10-PCS; 2019-09-19)
PROC: 0GTQ0ZZ Resection of Multiple Parathyroid Glands, Open Approach (ICD-10-PCS; principal; 2019-09-19 11:00)
DX: E21.0 Primary hyperparathyroidism (principal); E83.52 Hypercalcemia; D35.1 Benign neoplasm of parathyroid gland; E04.9 Nontoxic goiter, unspecified
CPT/HCPCS: 93005; 85025; 36415 ×2; 82310; 84155; 82947 ×2; 88331; 88332; 88305; 88307; 88333; 83970 ×3; 60500; 60225; J2704; J2370; J2250; J3010; J1100; J2175 ×2; J7060; J7040; J7030 ×2; J2405